=== PATIENT | male | born 1965 | race Caucasian/White ===

== ENCOUNTER 2018-10-27 22:11 | Emergency (ER) | payer OTHER ==
[2018-10-28 01:12] VITALS: BP 157/87
[2018-10-28] MEDS ORDERED: HYDROCODONE/ACETAMINOPHEN 5-325 MG TABLET PO ONE (01:31)
--- NOTE | 2018-10-28 01:35 | ER Document Report ---
HPI - HPI Patient complains to provider of: sun burn, painful rash to feet Time Seen by Provider: 10/28/18 01:03 Onset: This morning Onset/Duration: Gradual, Constant Quality of pain: Achy, Burning Severity: Moderate Pain Level: 4 Context: 53 Yr old male pt, with the listed pmh, here for sunburn to his bilat lower leg, chest, face, and worst on the tops of his bilat feet after he was out in the sun all day today. he is a diabetic. states his sugars are well controlled. last a1c was 5. he is just here visiting from [place] for the next 3 days. otc meds not controlling his pain. he is able to walk. he hasn't put anything on the area. states he can take dilaudid, vicodin, and oxycodone with no issues. no numbness, weakness or tingling. no surgeries on his lower extremities. hasn't sought care until now. no pain anywhere else. pt able to walk. denies intoxication. pain worse with movement and palpation. better with rest. no fevers. no other fall or trauma or associated sx Exacerbated by: Movement, Walking Relieved by: Remaining still Similar symptoms previously: Yes Recently seen / treated by doctor: No - ROS Systems Reviewed and Negative: Yes All other systems reviewed and negative - to include 10 systems, unless mentioned in the hpi Past Medical History - General Information source: Patient - Social History Smoking Status: Current Every Day Smoker Chew tobacco use (# tins/day): No Frequency of alcohol use: Rare Drug Abuse: None Lives with: Spouse/Significant other Family History: Reviewed & Not Pertinent Patient has suicidal ideation: No Patient has homicidal ideation: No - Past Medical History Cardiac Medical History: Reports: Hx Hypertension - hasn't taken his meds today. Endocrine Medical History: Reports: Hx Diabetes Mellitus Type 2 - diet controlled Renal/ Medical History: Denies: Hx Peritoneal Dialysis Past Surgical History: Reports: Hx Abdominal Surgery - partial colectomy, gastric sleeve,, Hx Bowel Surgery, Hx Gastric Bypass Surgery, Hx Orthopedic Surgery - ACL repair - Immunizations Immunizations up to date: Yes Vertical Provider Document - CONSTITUTIONAL Exam Limitations: No Limitations General Appearance: No Apparent Distress Notes: GENERAL_APPEARANCE: alert and oriented x 3, mood and affect wnl, cooperative, mild obvious discomfort. Pleasant, obese middle aged white male, smiling, speaking in full sentences, in no sign of resp distress, appears uncomfortable but not toxic, easily sitting up, at bedside VITALS: reviewed, see vital signs table. HEAD: no_swelling\tenderness on the head, normocephalic, atraumatic NECK: supple, no_neck_tenderness. full rom and full strength. HEART: RRR LUNGS: CTAB, good air exchange diffusely BACK: no_back_tenderness EXTREMITIES: good pulse in all extremities, the anterior face, anterior chest, and anterior bilateral legs from the mid thighs down to the tops of his feet all have first-degree morgan consistent with sunburn. Areas are tender to palpate. There is no blistering. He has chronic venous stasis changes and varicose veins. The morgan are not circumferential. TBSA is approx 40% 1st degree morgan. no 2nd or third degree morgan. no swelling, mild-mod tenderness and no_abrasions\lacerations other than as noted. Full rom and full strength. Normal gait. 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 brisk cap refill. no other shortening or rotation of the limb or obvious deformities to suggest trauma unless otherwise noted. no other swelling or ttp. SKIN: warm, dry, good_color. no other rash. no other grossly visible overlying skin changes to suggest trauma NEURO: motor_intact and sensory_intact in injured_extremity. cranial nerves 2- 12 intact - INFECTION CONTROL TRAVEL OUTSIDE OF THE [place] IN LAST 30 DAYS: No Course - Re-evaluation Re-evalutation: 10/28/18 01:30 Pt here for sunburn to his stomach, face, and bilateral lower extremities for one day. worse on the tops of his feet. pain is not controlled with vbrg-gdo-eirxgjg pain medication. He responded well to treatment here. Will discharge him a few Vicodin. Gave medication precautions. Advised uhyr-yfm-yybwkoc sunburn topical relief treatment. advised to keep a close check on his sugars. he is from [place] and just here visiting. Advised to follow-up closely with his PCP for recheck when he returns to [place] in 3 days. advised to f/u with pcp in 1-2 days. return for any worsening symptoms. vss. well appearing. satting well on ra. neurononfocal. pt understands and agrees to plan. On reexam, pt improved with tx listed. remained stable. nontoxic. well appearing. pain controlled. tolerating po. requesting to go home. neurononfocal. Documentation achieved through voice recording which may lead to some occasional accidental typographical errors. Extensive efforts have been made to proof read documentation to make sure these are the least as possible. according to the [place] drug database, pt has only received 11 percocet in apr 2018 in the last 2 yrs when the system was ran to include [place] and [place]. 10/28/18 01:32 Category Date Time Status Hydrocodone/Acetaminophen [Mark 5-325 mg Tablet] Med 10/28/18 01:31 Once 2 tab PO NOW ONE 10/28/18 02:13 - Vital Signs Vital signs: Temp Pulse Resp BP Pulse Ox 98.3 F 74 20 157/87 H 100 10/28/18 01:10 10/28/18 01:10 10/28/18 01:10 10/28/18 01:10 10/28/18 01:10 Discharge - Discharge Clinical Impression: Burn from the sun Condition: Good Disposition: HOME, SELF-CARE Instructions: Sunburn (OM) Additional Instructions: Follow-up with your PCP in 1 to 2 days. Return for any worsening symptoms. Do not work, drive, operate machinery, or take Tylenol with the pain medication. Mxax-pby-hpwqmss sunburn topical relief treatment. Keep a close check on your sugars. take the medication as prescribed. benadryl as needed for any itching. Prescriptions: Hydrocodone/Acetaminophen [Mark 5-325 mg Tablet] 1 tab PO Q6 PRN #12 tablet PRN Reason: For Pain
== END 2018-10-28 01:45 | disposition home or self-care (01) ==
LOC: ER 22:11
DX: L55.9 Sunburn, unspecified (principal); R21 Rash and other nonspecific skin eruption; E11.9 Type 2 diabetes mellitus without complications; F17.200 Nicotine dependence, unspecified, uncomplicated
CPT/HCPCS: 99283

== ENCOUNTER 2019-09-26 21:06 | Emergency (ER) | payer OTHER ==
[2019-09-26] MEDS ORDERED: OXYCODONE-ACETAMINOPHEN 5-325 MG TABLET PO ONE (21:21)
--- NOTE | 2019-09-26 21:24 | ER Document Report ---
ED Medical Screen (RME) - General Chief Complaint: Leg Pain Stated Complaint: LEG WOUND Time Seen by Provider: 09/26/19 21:21 Mode of Arrival: Ambulatory Information source: Patient Notes: 54-year-old male presented to ED for cellulitis to the left lower leg x3 days. He states he has been using bacitracin and cleaning it but it is getting worse and more painful. It is red from about the knee down to the ankle. He states he does take a water pill daily for his blood pressure. He states he was a diabetic and was on medicines for his diabetes before having weight loss surgery. He now takes a white water pill for his high blood pressure. He is also had a colon resection for diverticulitis, rotator cuff repair and a left ACL repair as well as a lumbar fusion. He states he is a former smoker does not smoke for several months now. He states he took his Accu-Chek this morning and it was 120. I have greeted and performed a rapid initial assessment of this patient. A comprehensive ED assessment and evaluation of the patient, analysis of test results and completion of medical decision making process will be conducted by an additional ED providers. TRAVEL OUTSIDE OF THE [place] IN LAST 30 DAYS: No - Related Data Allergies/Adverse Reactions: morphine Allergy (Verified 10/28/18 01:14) nut - unspecified Allergy (Verified 10/28/18 01:14) Penicillins Allergy (Verified 10/28/18 01:12) Past Medical History - Past Medical History Cardiac Medical History: Reports: Hx Hypertension - hasn't taken his meds today. Endocrine Medical History: Reports: Hx Diabetes Mellitus Type 2 - diet controlled Renal/ Medical History: Denies: Hx Peritoneal Dialysis Past Surgical History: Reports: Hx Abdominal Surgery - partial colectomy, gastric sleeve,, Hx Bowel Surgery, Hx Gastric Bypass Surgery, Hx Orthopedic Surgery - ACL repair - Immunizations Immunizations up to date: Yes Physical Exam - Vital signs Vitals: Temp Pulse Resp BP Pulse Ox 99.0 F 89 18 147/83 H 97 09/26/19 21:13 09/26/19 21:13 09/26/19 21:13 09/26/19 21:13 09/26/19 21:13 Course - Vital Signs Vital signs: Temp Pulse Resp BP Pulse Ox 99.0 F 89 18 147/83 H 97 09/26/19 21:13 09/26/19 21:13 09/26/19 21:13 09/26/19 21:13 09/26/19 21:13
[2019-09-26 22:26] LABS: APPEARANCE,URINE CLEAR; BILIRUBIN,URINE NEGATIVE (NEGATIVE); COLOR,URINE AMBER; GLUCOSE, URINE NEGATIVE (NEGATIVE); KETONES,URINE TRACE mg/dL (NEGATIVE); PROTEIN,URINE NEGATIVE (NEGATIVE); URINE SPECIFIC GRAVITY 1.028
[2019-09-26 22:45] LABS: ALBUMIN 4.4 g/dL (3.5-5.0); ALKALINE PHOSPHATASE 49 U/L (38-126); ANION GAP 9 (5-19); ASPARTATE AMINO TRANSFERASE 34 U/L (17-59); BILIRUBIN,DIRECT 0.1 mg/dL (0.0-0.4); BILIRUBIN,TOTAL 0.6 mg/dL (0.2-1.3); BLOOD UREA NITROGEN 17 mg/dL (7-20); CALCIUM 9.1 mg/dL (8.4-10.2); CARBON DIOXIDE 24 mmol/L (22-30); CHLORIDE 103 mmol/L (98-107); GLUCOSE 155 mg/dL (75-110); POTASSIUM 3.8 mmol/L (3.6-5.0); TOTAL PROTEIN 7.2 g/dL (6.3-8.2)
[2019-09-27 03:36] VITALS: BP 133/78
[2019-09-27 04:27] LABS: ABSOLUTE EOSINOPHILS # (AUTO) 0.2 10^3/uL (0.0-0.6); ABSOLUTE LYMPHOCYTES (AUTO) 2.3 10^3/uL (0.5-4.7); ABSOLUTE MONOCYTES (AUTO) 0.6 10^3/uL (0.1-1.4); ABSOLUTE NEUT (AUTO) 3.8 10^3/uL (1.7-8.2); BASOPHILS % (AUTO) 0.1 % (0-2); EOSINOPHILS % (AUTO) 2.8 % (0-6); HEMOGLOBIN 15.6 g/dL (13.5-17.0); LYMPHOCYTES % (AUTO) 33.2 % (13-45); MEAN CORPUSCULAR HEMOGLOBIN 31.1 pg (27.0-33.4); MEAN CORPUSCULAR HGB CONC 34.6 g/dL (32.0-36.0); MEAN CORPUSCULAR VOLUME 90 fl (80-97); MONOCYTES % (AUTO) 9.2 % (3-13); PLATELET COUNT 228 10^3/uL (150-450); RED BLOOD COUNT 5.01 10^6/uL (4.35-5.55); RED CELL DISTRIBUTION WIDTH 13.5 % (11.5-14.0); SEGMENTED NEUTROPHILS % (AUTO) 54.7 % (42-78); TOTAL CELLS COUNTED % (AUTO) 100 %
== END 2019-09-27 04:27 | disposition left against medical advice (07) ==
LOC: ER 21:06
DX: M79.605 Pain in left leg (principal); I10 Essential (primary) hypertension; E11.9 Type 2 diabetes mellitus without complications; Z98.84 Bariatric surgery status
CPT/HCPCS: 36415; 80053; 81001; 82962; 85025; 87040; 99281

== ENCOUNTER → 2019-10-13 | Outpatient (CLI) | payer BC ==
[2019-10-13 13:04] LABS: ABSOLUTE BASOPHILS # (AUTO) 0.1 10^3/uL (0.0-0.2); ABSOLUTE EOSINOPHILS # (AUTO) 0.1 10^3/uL (0.0-0.6); ABSOLUTE MONOCYTES (AUTO) 0.6 10^3/uL (0.1-1.4); ABSOLUTE NEUT (AUTO) 4.1 10^3/uL (1.7-8.2); EOSINOPHILS % (AUTO) 1.9 % (0-6); HEMATOCRIT 44.9 % (37.9-51.0); HEMOGLOBIN 15.2 g/dL (13.5-17.0); LYMPHOCYTES % (AUTO) 28.8 % (13-45); MEAN CORPUSCULAR HEMOGLOBIN 30.8 pg (27.0-33.4); MEAN CORPUSCULAR HGB CONC 33.9 g/dL (32.0-36.0); MEAN CORPUSCULAR VOLUME 91 fl (80-97); MONOCYTES % (AUTO) 8.8 % (3-13); PLATELET COUNT 283 10^3/uL (150-450); RED BLOOD COUNT 4.95 10^6/uL (4.35-5.55); RED CELL DISTRIBUTION WIDTH 13.1 % (11.5-14.0); SEGMENTED NEUTROPHILS % (AUTO) 59.5 % (42-78); TOTAL CELLS COUNTED % (AUTO) 100 %; WHITE BLOOD COUNT 6.9 10^3/uL (4.0-10.5)
[2019-10-13 13:27] LABS: ALBUMIN 4.6 g/dL (3.5-5.0); ALKALINE PHOSPHATASE 49 U/L (38-126); ANION GAP 8 (5-19); ASPARTATE AMINO TRANSFERASE 33 U/L (17-59); BILIRUBIN,TOTAL 0.6 mg/dL (0.2-1.3); BLOOD UREA NITROGEN 15 mg/dL (7-20); CALCIUM 9.4 mg/dL (8.4-10.2); CARBON DIOXIDE 27 mmol/L (22-30); CHLORIDE 105 mmol/L (98-107); GLUCOSE 92 mg/dL (75-110); POTASSIUM 4.1 mmol/L (3.6-5.0); TOTAL PROTEIN 7.4 g/dL (6.3-8.2)
[2019-10-13 13:29] LABS: C-REACTIVE PROTEIN < 5.0 mg/L (<10.0)
[2019-10-13 14:29] LABS: ERYTHROCYTE SEDIMENTATION RATE 5 mm/hr (0-20)
== END ==
LOC: WC 11:59
PROVIDERS: ATTEND Nurse Practitioner Family
DX: E11.621 Type 2 diabetes mellitus with foot ulcer (principal); L97.222 Non-pressure chronic ulcer of left calf with fat layer exposed
CPT/HCPCS: 36415; 80053; 83036; 85025; 85652; 86140

== ENCOUNTER → 2019-10-26 | Outpatient (CLI) | payer BC ==
--- NOTE | 2019-10-26 16:55 | RADIOLOGY REPORT (SQ) ---
EXAM DESCRIPTION: ARTERIAL LOWER EXTREM BILAT IMAGES COMPLETED DATE/TIME: 10/26/2019 4:17 pm REASON FOR STUDY: LT CALF ULCER L97.222 NON-PRESSURE CHRONIC ULCER OF LEFT CALF W FAT LAYER COMPARISON: None. TECHNIQUE: Dynamic and static cohn scale and color images acquired of the lower extremity arteries. Additional selected spectral images recorded. ABIs recorded. LIMITATIONS: None. FINDINGS: RIGHT LEG: ABIS: Normal, over 1.0. INFLOW ARTERIES: Not imaged. FEMORAL ARTERIES:Multiphasic waveforms. Normal, no velocity elevation to suggest focal stenosis. Norm al color Doppler evaluation. No aneurysm. POPLITEAL ARTERY:Multiphasic waveforms. Normal, no velocity elevation to suggest focal stenosis. Norm al color Doppler evaluation. No aneurysm. PATENT TIBIOPERONEAL TRUNK AND 3 VESSEL RUNOFF: Yes, normal vessels. TBI: Not performed. OTHER: No other significant finding. LEFT LEG: ABIS: Normal, over 1.0. INFLOW ARTERIES: Not imaged. FEMORAL ARTERIES:Multiphasic waveforms. Normal, no velocity elevation to suggest focal stenosis. Norm al color Doppler evaluation. No aneurysm. POPLITEAL ARTERY:Multiphasic waveforms. Normal, no velocity elevation to suggest focal stenosis. Norm al color Doppler evaluation. No aneurysm. PATENT TIBIOPERONEAL TRUNK AND 3 VESSEL RUNOFF: Yes, normal vessels. TBI: Not performed. OTHER: No other significant finding. IMPRESSION: Normal resting arterial Doppler. COMMENT: [facility] NORMAL: Greater than 1.0 MINIMAL DISEASE: 0.9 to 1.0 CLAUDICATION: 0.5 to 0.9 SEVERE ARTERIAL DISEASE: Less than 0.5 [facility] NORMAL: Greater than 1.0 (1.2 If Heavy Calcifications) NORMAL TO MILD ISCHEMIA: 0.8 to 1.0 MODERATE ISCHEMIA: 0.4 to 0.8 SEVERE ISCHEMIA: Less than 0.4 TECHNICAL DOCUMENTATION: JOB ID: [id number] 2010 [employer]- All Rights Reserved Reading location - IP/workstation name: [email or web address]
--- NOTE | 2019-10-27 15:01 | RADIOLOGY REPORT (SQ) ---
EXAM DESCRIPTION: VENOUS REFLUX IMAGES COMPLETED DATE/TIME: 10/26/2019 4:18 pm REASON FOR STUDY: LT CALF ULCER L97.222 NON-PRESSURE CHRONIC ULCER OF LEFT CALF W FAT LAYER COMPARISON: None. TECHNIQUE: Multiple real-time grayscale sonographic images were obtained for evaluation of the right and left lower extremity. Doppler and duplex evaluation of the venous structures was performed. LIMITATIONS: None. FINDINGS: The right and left common femoral, superficial femoral, popliteal and infrapopliteal veins are patent with normal response to compression and augmentation maneuvers. Right greater saphenous vein: Previously ablated. Right small saphenous vein: Normal in caliber. No reflux. Left greater saphenous vein: The vessel is dilated ranging in size from 6.9 mm up to 8.6 mm. There i s up to 2.2 seconds of reflux. Left small saphenous vein: Normal in caliber. No reflux. OTHER: No solid or cystic masses or other abnormal findings. IMPRESSION: 1. No evidence of DVT or SVT. 2. 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 Reflux measures up to 2.2 seco nds. Vessel diameter measures up to 8.6 mm. This patient would most likely benefit from saphenous v ein ablation. TECHNICAL DOCUMENTATION: JOB ID: [id number] 2010 [employer]- All Rights Reserved Reading location - IP/workstation name: [email or web address]
== END ==
LOC: SP 12:53
PROVIDERS: ATTEND Nurse Practitioner Family
DX: L97.222 Non-pressure chronic ulcer of left calf with fat layer exposed (principal)
CPT/HCPCS: 93922; 93925; 93970